=== PATIENT | male | born 1970 | race Two or more races ===

== ENCOUNTER 2018-11-15 15:51 | Day surgery (SDC) | payer MEDICAID, OTHER ==
[2018-11-14 15:26] VITALS: BMI 33.5
[~2018-11-15] VITALS: Ht 165.1 cm; Wt 87.6 kg
[2018-11-15] VITALS (21 sets, daily range): BP systolic 138–186; BP diastolic 79–118; PULSE 56–114; RESP 12–18; Ht 165.1 cm; Wt 87.6 kg
[~2018-11-15 15:51] MED LIST: CEFAZOLIN 1 GM INJ ONE; CEFAZOLIN 2 GM/50 ML (PMX) 50 ML IVPB ONE; LACTATED RINGER'S 1,000 ML IV* SCH; POLYMYXIN/BACITRACIN 1L IRRIG ONE
--- NOTE | 2018-11-15 16:07 | PREAC ---
Date/Time of Note Date/Time of Note DATE: 11/15/18 TIME: 16:00 Anesthesia Eval and Record Evaluation Time Pre-Procedure Interview DATE: 11/15/18 TIME: 16:00 Age 48 Sex male NPO: 8 hrs Preoperative diagnosis right distal radius fracture, intra-articular, comminuted, displaced Planned procedure ORIF right distal radius fracture, intra-articular, comminuted, displaced and right carpal tunnel release Past Medical History Past Medical History: Includes Cardio: HTN GI: Obesity Surgery & Anesthesia Issues No known issue Meds Anticoagulation: No Beta Robert within 24 hr: No Reason Beta Robert not given: Pt. not on B-Robert Current Medications Lactated Ringer's 1,000 ml @ 25 mls/hr Q24H IV* ; Start 11/15/18 at 12:00; Stop 11/17/18 at 03:59 Meds reviewed: Yes Allergies Coded Allergies: No Known Allergy (Unverified , 11/14/18) Allergies Reviewed: Yes Labs/Studies Labs Reviewed: Reviewed by anesthesiologist test: N/A Pre-procedure Exam Airway: Adequate mouth opening, Adequate thyromental dist Mallampati: Mallampati II Teeth: Normal Lung: Normal Heart: Normal ASA Physical Status ASA physical status: 2 Emergency: None Planned Anesthetic General/MAC: LMA Nerve block: Brachial plexus (right) Planned Pain Management Single shot nerve block, Parenteral pain med Pre-operative Attestations Prior to commencing anesthesia and surgery, the patient was re-evaluated, there was verification of: *The patient's identity *The results of appropriate recent lab work and preoperative vital signs *The above evaluation not changing prior to induction *Anesthetic plan, risk benefits, alternative and complications discussed with patient/family; questions answered; patient/family understands, accepts and wishes to proceed. RODO SILVERMAN MD Nov 15, 2018 16:07
[2018-11-15] MEDS ORDERED: PROCHLORPERAZINE 10 MG INJ IV PRN (16:30)
[2018-11-15] MEDS ORDERED: FENTAnyl 50 MCG/ML VIAL IV PRN ×3 (16:30)
[2018-11-15] MEDS ORDERED: OXYCODONE/ACETAMINOPHEN (5/325) TAB PO PRN (16:30)
[2018-11-15] MEDS ORDERED: HYDROmorphONE 1 MG/5 ML IV SYRINGE IV PRN ×3 (16:30)
[2018-11-15] MEDS ORDERED: LABETALOL HCL 20MG INJ IV PRN (16:30)
[2018-11-15] MEDS ORDERED: ONDANSETRON 4 MG INJ IV PRN (16:30)
[2018-11-15] MEDS ORDERED: DIPHENHYDRAMINE 50 MG INJ IV PRN (16:30)
[2018-11-15] MEDS ORDERED: MEPERIDINE 25 MG INJ IV PRN (16:30)
--- NOTE | 2018-11-15 16:31 | HPN ---
Date/Time of Note Date/Time of Note DATE: 11/15/18 TIME: 16:31 Interval H&P Admission Note Pt. seen H&P reviewed: No system changes NICOLA STRICKLAND Nov 15, 2018 16:31
[2018-11-15] MEDS ORDERED: PROPOFOL 20 ML ONE (16:50)
[2018-11-15] MEDS ORDERED: MIDAZOLAM 1 MG/ML 2 ML INJ ONE (16:50)
[2018-11-15] MEDS ORDERED: LIDOCAINE 2% (SDV) 5 ML INJ ONE (16:50)
[2018-11-15] MEDS ORDERED: ROPIVACAINE 0.5 % 30 ML VIAL ONE (16:57)
[2018-11-15] MEDS ORDERED: FENTAnyl 50 MCG/ML VIAL ONE ×2 (17:10→18:20)
[2018-11-15] MEDS ORDERED: DEXAMETHASONE 4 MG/ML 5 ML INJ ONE (17:11)
[2018-11-15] MEDS ORDERED: ONDANSETRON 4 MG INJ ONE (17:11)
[2018-11-15] MEDS ORDERED: EPHEDrine 50 MG INJ ONE (17:54)
--- NOTE | 2018-11-15 18:30 | OPPN ---
Date/Time of Note Date/Time of Note DATE: 11/15/18 TIME: 18:28 Operative Report Preoperative Diagnosis Right distal radius fracture, intra-articular, greater than 3 fragments Right carpal tunnel syndrome Postoperative Diagnosis Right distal radius fracture, intra-articular, greater than 3 fragments Right carpal tunnel syndrome Operation/Procedure Performed Right distal radius fracture, intra-articular, greater than 3 fragments ORIF Right carpal tunnel release, open Tenotomy of right wrist brachioradialis tendon Surgeon see signature line paralegal assistant none Anesthesia: general Estimated blood loss: 0 - 10 ml's Transfusion Required none Specimen none Grafts/Implants none Complications none NICOLA STRICKLAND Nov 15, 2018 18:30
--- NOTE | 2018-11-15 18:42 | PAC ---
Date/Time of Note Date/Time of Note DATE: 11/15/18 TIME: 18:40 Post-Anesthesia Notes Post-Anesthesia Note Last documented vital signs Vital Signs Date Temp Pulse Resp B/P (MAP) Pulse Ox O2 O2 Flow FiO2 Time Delivery Rate 11/15/18 98.0 18:39 11/15/18 84 16 141/96 98 Room Air 16:23 (111) Activity: WNL Respiratory function: WNL Cardiovascular function: WNL Mental status: Baseline Pain reasonably controlled: Yes Hydration appropriate: Yes Nausea/Vomiting absent: Yes Comments BP: 139/87 HR: 90 T: 97.9 SaO2: 95% RR: 15 RODO SILVERMAN MD Nov 15, 2018 18:42
[2018-11-15] MEDS: hydrALAzine 20 MG INJ IV PRN ×3 (18:54→19:38)
--- NOTE | 2018-11-15 19:04 | OPR ---
DATE OF OPERATION: 11/15/2018 SURGEON: Nicola Etienne MD ANESTHESIA: Peripheral nerve block plus general. PREOPERATIVE DIAGNOSES: 1. Right distal radius fracture, intra-articular, greater than 3 fragments. 2. Right carpal tunnel syndrome. POSTOPERATIVE DIAGNOSES: 1. Right distal radius fracture, intraarticular, greater than 3 fragments. 2. Right carpal tunnel syndrome. PROCEDURES: 1. Open reduction and internal fixation of right distal radius fracture, intra-articular, greater th an 3 fragments. 2. Right carpal tunnel release, open. 3. Tenotomy of the right wrist brachioradialis tendon at the distal radius. OPERATIVE FINDINGS: Displaced comminuted intra-articular right distal radius fracture with swelling within the carpal canal. INDICATION FOR PROCEDURE: A 48-year-old male with injury to the right wrist. He was seen in clinic and diagnosed with a distal radius fracture with comminution displacement as well as symptoms of carp al tunnel. We discussed the options and the patient elected to proceed with surgical intervention, u nderstanding the risks and benefits. DESCRIPTION OF PROCEDURE: The patient was seen in the preoperative area and all further questions we re answered. Again, he gave informed consent, understanding risks and benefits. He was taken to OR suite and placed in supine position. Ancef 2 grams IV were given and the patient was placed under ge neral anesthesia. The anesthesia team performed a peripheral nerve block and tourniquet was then mariano beto in the right upper extremity. Right upper extremity was prepped with ChloraPrep stick and draped in usual sterile fashion. Esmarch bandage was used to exsanguinate the extremity and tourniquet was inflated to 250 mmHg. Attention was first turned to the distal radius and a modified volar Al ap proach to the distal radius was utilized. Sharp dissection carried down through skin and subcutaneou s tissue. The FCR sheath incised and the FCR tendon was retracted ulnarly. The FCR subsheath was in cised. The FPL tendon was retracted ulnarly. The pronator quadratus was incised along its radial an d distal borders and the fracture site was identified. The fracture site was mobilized and was reduc ed into a more anatomic position. There was a radial displacement of the distal fragment and the dec ision was made to proceed with tenotomy of the brachioradialis tendon at the distal radius. The brac hioradialis tendon was identified at the radial styloid and was dissected off the radial styloid. I was unable to reduce the fracture into a more anatomic position. A [employer] volar distal radius plat e was placed across the fracture site and cortical and locking screws were placed proximally and dist ally. X-ray imaging showed appropriate hardware placement and bony alignment. Wound was copiously i rrigated and skin was closed with 4-0 nylon. Attention was turned to the carpal tunnel and a 2 cm in cision at the base of the palm was utilized with sharp dissection carried down through skin and subcu taneous tissue. The palmar aponeurosis was incised along its ulnar border and retractors were deepen ed. The transverse carpal ligament was divided along its ulnar border approximately 3 mm radial to t he hook of the hamate. Retraction placed locked proximally and distally and the proximal distance tr ansverse carpal ligament were divided under direct visualization. Wound was copiously irrigated and skin was closed with 4-0 nylon. Xeroform was placed over the wound followed by sterile gauze, Webril and a short arm splint. Tourniquet was deflated after 51 minutes. The patient was awakened from an esthesia. He was taken to postoperative suite in stable condition, tolerated procedure well without complications. SPECIMENS: None. ESTIMATED BLOOD LOSS: 5 mL. COUNTS: Sponge, instrument, needle counts were correct. TOURNIQUET TIME: 51 minutes. CONDITION ON DISCHARGE: Stable. The patient was given a nonrefillable 5-day prescription for pain medication for surgery today. Dictated By: NICOLA LOPEZ/CHAY Conf#: [id number] DID#: [id number]
== END 2018-11-15 20:49 | disposition home or self-care (01) ==
LOC: SDS 15:51
PROVIDERS: ATTEND Orthopaedic Surgery Hand Surgery
DX: S52.571D Other intraarticular fracture of lower end of right radius, subsequent encounter for closed fracture with routine healing (principal); X58.XXXD Exposure to other specified factors, subsequent encounter; G56.01 Carpal tunnel syndrome, right upper limb; I10 Essential (primary) hypertension; E66.9 Obesity, unspecified; Z68.32 Body mass index [BMI] 32.0-32.9, adult
CPT/HCPCS: 64721; 73110; C1713; J0360; J0690; J1100; J2250; J2405; J2795; J3010; Z7512; Z7610